=== PATIENT | male | born 1940 | race Caucasian/White ===

== ENCOUNTER 2018-12-26 09:56 | Inpatient (IN) ==
[2018-12-26] MEDS ORDERED: ZOFRAN IV PRN (11:06)
[2018-12-26] MEDS ORDERED: DUONEB (A & A) INH PRN (11:06)
--- NOTE | 2018-12-26 11:27 | EKG Report ---
Test Performed on : 12/26/2018 11:19:46 AM Test Reason : rythm evaluation Blood Pressure : / mmHG Vent. Rate : 094 BPM Atrial Rate : 094 BPM P-R Int : 166 ms QRS Dur : 080 ms QT Int : 352 ms P-R-T Axes : 041 001 031 degrees QTc Int : 440 ms Normal sinus rhythm. Low voltage QRS Borderline ECG When compared with ECG of 12-JUN-2018 08:10, Questionable change in QRS axis T wave inversion no longer evident in Inferior leads Confirmed by Mervin SIEGEL, Afshin Ashraf ([id number]) on 12/27/2018 12:00:06 PM
--- NOTE | 2018-12-26 12:34 | Diag Imaging Result Doc PS360 ---
CT THORAX W/O CONTRAST - 12/26/2018 INDICATION: R pl effussion COMPARISON: 11/19/2014, 12/13/2018 FINDINGS: There has been recurrence of the right pleural effusion which is moderately large. There is at least one pleural-based mass at the anterior-lateral right middle lobe. This measures 2.3 x 1.3 cm. No abnormality visible in the upper abdomen. There are numerous tiny pulmonary nodules diffusely throughout the lungs bilaterally. There are probably 100s. These measure less than 5 mm. IMPRESSION: 1. Recurrent rather large right pleural effusion. 2. Pleural-based masses on the right. Numerous tiny pulmonary nodules. Highly concerning for metastatic cancer. This exam was performed using automated exposure control, adjustment of mA or kV according to patient size, and/or use of iterative reconstruction technique Electronically signed by Sumit Gerber 12/26/2018 12:32 PM
[2018-12-26 13:02] LABS: BASO# 0.06 X1000 (0.0-0.2); BASO% 0.6 % (0.0-0.8); EOS% 1.1 % (0.0-10.0); HEMATOCRIT 40.6 % (42.0-52.0); IMM GRAN# 0.03 X1000 (0.0-0.04); IMM GRAN% 0.3 % (0.0-0.5); LYMPH# 1.17 X1000 (1.2-3.4); LYMPH% 12.3 % (20.5-51.1); MCH 30.4 PG (27-31); MCHC 34.5 g/dL (33-37); MCV 88.1 FL (81-99); MONO# 0.45 X1000 (0.11-0.59); MONO% 4.7 % (1.7-9.3); MPV 9.9 FL (7.4-10.4); NEUT# 7.68 X1000 (1.4-6.5); PLT 334 X1000 (130-400); RBC 4.61 XMIL (4.7-6.1); RDW 12.8 % (11.5-14.5); WBC 9.49 X1000 (4.8-10.8)
--- NOTE | 2018-12-26 13:03 | HISTORY AND PHYSICAL ---
PRIMARY CARE PROVIDER: Siddhartha Godinez MD. ONCOLOGIST: Bryan Rose MD. GENERAL SURGEON: Aishwarya Godinez MD. CHIEF COMPLAINT: Shortness of breath. HISTORY OF PRESENT ILLNESS: Mr. Yao Esteban is a 78-year-old male with a medical history of thyroid cancer diagnosed back in 2010 or 2011. At that time, he had thyroidectomy and it sounds like it was a radical left neck where they removed several lymph nodes and apparently it was all clear. He has been followed by Dr. Rose since then and has not had any issues up until around when he started having shortness of breath. He went in for a routine every [address] Rose, who ordered a chest x-ray and a CT and apparently it showed the right pleural effusions and some mediastinal lymph nodes, and then went for a thoracentesis. The right thoracentesis performed by [facility] where they pulled off 1325 mL. He states that while this was done on 12/13/2018, he said within a few days he was having shortness of breath once again. So, he went back to Dr. Rose, who then ordered a PET scan, which apparently showed several lesions in the lungs and again the right pleural effusion that is large and lower lumbar lesions as well. So, he was scheduled for a right pleural chest tube placement for tomorrow with Dr. Hemant Godinez but due to the inability to even lay flat or he is just having significant shortness of breath, he went ahead and notified Dr. Rose's office, went in and has now been directly admitted, will have a chest CT performed and pleural chest tube placement by Dr. Godinez. He was suppose to have a MRI today. He said he was unable to lay flat so it was not performed. Other medical history includes melanoma on his buttocks. He had to have that removed, it has not spread apparently. He has diabetes mellitus type 2, some iron-deficiency anemia, and high blood pressure. PAST MEDICAL HISTORY: 1. Iron-deficiency anemia. 2. Thyroid cancer in 2010 or 2011, apparently it was in remission but is back since around September. 3. Hypertension. 4. Diabetes mellitus type 2. 5. History of melanoma on the buttock with excision. 6. Hypothyroidism. PAST SURGICAL HISTORY: 1. Appendectomy. 2. Four back surgeries. 3. Right thoracentesis on 12/13/[address] Gerber. 4. Right shoulder arthroscopy. 5. Hydrocele x3 repaired. 6. Left knee replacement. 7. Thyroidectomy, this is back in 2010 or 2011, it almost sounds like a radical neck on the left but had several lymph nodes removed and some mediastinal lymph nodes removed at that time as well. Never had chemotherapy or radiation. SOCIAL HISTORY: Denies tobacco. States he is a pretty heavy drinker up until about 15 or more years ago when he quit and denies illicit drug use. Lives at home with his . FAMILY HISTORY: Mother at age 49 from stomach cancer. Father at age 51 from bone cancer. ALLERGIES: No known drug allergies. HOME MEDICATIONS: Not yet verified. REVIEW OF SYSTEMS: A 14-point review of systems are complete and all were negative except for those mentioned above in HPI. He denies fever, chills, nausea, vomiting, or diarrhea. He just has shortness of breath and that is all and some left hip and lower back discomfort. PHYSICAL EXAMINATION: VITAL SIGNS: Temperature 97.5, heart rate 91, respiratory rate 18, blood pressure 118/56, O2 saturation 93% on room air. GENERAL: Mr. Yao Gonzales is a 78-year-old male. He is in no acute distress. He is mildly dyspneic with exertion, now with speaking but it is not severe. He is able to answer questions appropriately. HEENT: Atraumatic, normocephalic. Pupils equal, round, and reactive to light. Extraocular movements intact. Mucous membranes are moist. NECK: Trachea midline. CARDIOVASCULAR: S1, S2, regular rate and rhythm. No rubs, gallops, or murmurs. No lower extremity edema, +2 dorsalis and radial pulses. Negative JVD or carotid bruits. PULMONARY: Clear to auscultate, very decreased in the right middle to lower base anterior and posteriorly. No work of breathing but mild dyspnea. Tolerating room air. GASTROINTESTINAL: Soft, nontender, nondistended, positive bowel sounds x4. EXTREMITIES: Moves all extremities equally with full range of motion. NEUROLOGIC: A and O x3, follows commands. Sensory is intact. SKIN: Warm, dry, intact. LABORATORY DATA: There is none at this time. There have been labs ordered. IMAGING: There has been a CT of the chest without contrast ordered per Dr. Hemant Godinez's recommendations. EKG shows normal sinus rhythm, rate is 94, QTc is 440. ASSESSMENT AND PLAN: 1. Reoccurrence of thyroid cancer now with reoccurring right large pleural effusion. He had a thoracentesis 12/13 where they pulled off a little over 1300 mL, now he has started having symptoms within a few days after that procedure. He was scheduled for chest tube placement tomorrow but was unable to sleep last night due to his shortness of breath, so he will have a CT scan today of the chest and plans for chest tube placement on the right with Dr. Hemant Godinez. He will be n.p.o. and then we will give him a diet post chest tube placement. 2. Hypothyroidism with thyroid cancer history and reoccurring thyroid cancer cells to the lymph nodes. Dr. Rose follows and we will make sure he is consulted as he is the one that directly admitted the patient. Also will check a TSH, T4. He is suppose to be on Synthroid so we will see what the dosing is once his home medications are verified and resume it. 3. Diabetes mellitus type 2. Will do pattern blood glucoses and sliding scale insulin. 4. Iron-deficiency anemia. Awaiting for hemoglobin and hematocrit results. 5. Deep venous thrombosis prophylaxis, sequential compression devices for now. Dictated by HARLEY Conn for David Cruz MD cc: HARLEY Conn MD Sammy Becdach, MD R. Tyler Harney, MD Rodney W. Harney, MD Patient seen and examined by me. I agree with the assessment and plan of the HARLEY. Dr. Nancy BURNETT
[2018-12-26 13:09] LABS: INR 0.94; PROTIME 13.3 Seconds (11.0-16.0)
[2018-12-26 13:10] LABS: PTT 28.6 Seconds (22.3-41.8)
[2018-12-26 13:19] LABS: ALLEN TEST YES; BE 1.3 mmoll (-3.0-3.0); BLOOD TYPE ARTERIAL; HCO3-(ACT) 25.9 mmoll (20.0-26.0); METHB 1.2 % (0.0-1.5); O2(CT) 16.7 mL/dL (15.0-23.0); O2HB 94.8 % (95.0-99.0); PCO2(98.6) 44 mmHg (35-45); PO2(98.6) 79 mmHg (60-100); SAMPLE BLOOD; THB 12.5 g/dL (11.5-17.4); pH(98.6) 7.39 (7.35-7.45)
[2018-12-26 13:20] LABS: MODALITY CANNULA
[2018-12-26 13:25] LABS: AGAP 15; ALB/GLOB RATIO 1.4; ALBUMIN 4.7 g/dL (3.5-5.0); ALKALINE PHOSPHATASE 67 U/L (32-122); BUN 16 mg/dL (8-22); CALCIUM 9.4 mg/dL (8.8-10.2); CHLORIDE 94 mmol/L (98-107); COSMO 278; ESTIMATED GFR > 60; GLUCOSE 225 mg/dL (70-104); GOT 14 U/L (10-34); GPT 13 U/L (10-44); MAGNESIUM 1.6 mg/dL (1.5-2.7); SODIUM 135 mmol/L (136-145); TCO2 26 mmol/L (25-35); TOTAL BILIRUBIN 0.78 mg/dL (0.20-1.00); TOTAL PROTEIN 8.1 g/dL (6.3-8.3)
[2018-12-26 13:38] LABS: FREE T4 1.29 ng/dL (0.93-1.70); TSH 9.23 uIUmL (0.27-4.20)
[2018-12-26] MEDS: HUMULIN R SUBQ SCH ×2 (18:02→22:35)
[2018-12-26 18:30] LABS: URINE SOURCE CLEAN CATCH
[2018-12-26 18:35] LABS: BILIRUBIN URINE NEGATIVE (NEGATIVE); BLOOD URINE MODERATE (NEGATIVE); COLOR YELLOW; GLUCOSE URINE NEGATIVE (NEGATIVE); KETONE URINE TRACE mg/dL (NEGATIVE); LEUKOCYTES URINE SMALL (NEGATIVE); NITRITE URINE NEGATIVE (NEGATIVE); PROTEIN URINE TRACE mg/dL (NEGATIVE); SP GRAVITY URINE 1.014; TURBIDITY URINE HAZY (CLEAR); UROBILINOGEN URINE NORMAL (NORMAL)
[2018-12-26 18:37] LABS: UR EPITHELIAL CELLS <10 /HPF (<10); URINE BACTERIA 4+ /HPF; URINE RBC 20-40 /HPF (<10); URINE WBC 20-40 /HPF (<10)
--- NOTE | 2018-12-26 20:46 | GENERAL SURGERY CONSULTATION ---
DATE: 12/26/2018 HISTORY OF PRESENT ILLNESS: This is a 78-year-old gentleman who had a radical thyroidectomy back [place] [address] Monaco for metastatic papillary thyroid carcinoma. He underwent radioactive iodine at that time. He has also had a perianal melanoma that was excised by Dr. Garcia around the same time period. He has also had some lower lumbar/hip discomfort. He had a scan that showed a pleural effusion that was tapped and showed cytologies consistent with metastatic papillary carcinoma. He had a large volume paracentesis, but developed recurrent respiratory symptoms in a short interval, and is admitted for management of right effusion. MEDICAL HISTORY: 1. Thyroid carcinoma, treated in 2010 with a modified radical right neck dissection, total thyroidectomy, as well as adjuvant radioactive iodine. 2. Hypertension. 3. Diabetes. 4. History of cutaneous melanoma. 5. Hypothyroidism, secondary to above. SURGICAL HISTORY: 1. Appendectomy. 2. Back operations. 3. Recent thoracentesis on 12/13/2018. 4. Shoulder. 5. Hydrocele. 6. Knee replacement. 7. Radical neck with thyroidectomy. SOCIAL HISTORY: No current tobacco. History of alcohol, but none currently. . His is here with him. FAMILY HISTORY: Significant for gastric cancer and bone cancer. MEDICATIONS: Negative for anticoagulants. REVIEW OF SYSTEMS: 10 point negative. PHYSICAL EXAMINATION: General: He is afebrile. Pulse is in the 90s. Blood pressure 147/64. Oxygen saturation is 93%. He is on 2 L. General: He is alert. He has no scleral icterus. He has postsurgical changes, right neck, but no palpable masses. Cardiovascular: Normal rate. Pulmonary: He does have some orthopnea when he lies flat, but otherwise no respiratory distress. Abdomen: Soft. Integument: Warm and dry. Psychiatric: Appropriate affect. Neurologic: No gross deficits. Lymphatic: No cervical, axillary, or inguinal adenopathy. I reviewed his labs. White count is 9, hematocrit is 40. INR is 0.94. Creatinine is 1.0. Glucose 120s to 225. LFTs and troponins are normal. I reviewed a CT scan of the chest that shows a large right effusion with pleural-based nodules. ASSESSMENT AND PLAN: A 78-year-old gentleman with metastatic papillary thyroid carcinoma. He needs palliative drainage of the fluid to facilitate his ongoing therapy. I have discussed risks, benefits, pros and cons. I have recommended PleurX catheter placement. We will go to the operating room for this tomorrow. I have also talked to Dr. Rose. He does not require any further tissue diagnosis. As such, we will not perform this. We will plan on bronchoscopy concurrently with this to rule out any mucus plugging of lower lobes of the lung. I discussed risks of bleeding, the anticipated recovery, possibility of malfunction of the catheter, need for subsequent procedures, damage to lung, incomplete expansion of the lung, and the care of the tube at home. They understand and consent. We will go to the operating room tomorrow for this. cc: Aishwarya Godinez MD
--- NOTE | 2018-12-26 22:51 | ECHO REPORT ---
ORDER DATE: 12/26/2018 MEASUREMENTS: 1. Septal thickness 1.2, left ventricular internal mammary diastole 3.5, posterior wall thickness 1.0, left ventricular internal diameter in systole 2.1, left atrium 3.3, aortic root 3.6. SUMMARY: 1. Adequate quality study. 2. Aortic valve is trileaflet and opens normally on 2-dimensional images. Peak gradient across aortic valve was less than 10 mmHg. Mitral, tricuspid, and pulmonic valves are without evidence of structural abnormality with trace mitral regurgitation, very mild tricuspid regurgitation, and mild pulmonic insufficiency. Estimated systolic PA pressure by Doppler is 40 mmHg suggesting mild pulmonary hypertension. Aortic root is normal in size. The proximal ascending aorta appears mildly dilated. 3. Normal left ventricular dimensions suggested. Estimated left ejection fraction appears to be at least 65%. No regional wall motion abnormality is evident. Left atrium, right atrium, right ventricle are normal size with normal right ventricular systolic function. 4. No pericardial effusion. 5. Inferior vena cava is mildly dilated suggesting mild elevation in central venous pressure. CONCLUSIONS: 1. Very mild tricuspid regurgitation and mild pulmonic insufficiency with mild pulmonary hypertension by Doppler. 2. Normal left ventricular systolic function without wall motion abnormality evident. 3. Mild dilatation of proximal ascending aorta. cc: MD Malou Miranda CRNP
[2018-12-27] MEDS: HUMULIN R SUBQ SCH ×4 (06:48→21:23)
[2018-12-27 06:49] LABS: BASO# 0.04 X1000 (0.0-0.2); BASO% 0.5 % (0.0-0.8); EOS% 2.6 % (0.0-10.0); HEMATOCRIT 38.1 % (42.0-52.0); HEMOGLOBIN 13.3 g/dL (14.0-18.0); IMM GRAN# 0.02 X1000 (0.0-0.04); IMM GRAN% 0.3 % (0.0-0.5); LYMPH# 1.03 X1000 (1.2-3.4); LYMPH% 13.5 % (20.5-51.1); MCH 30.7 PG (27-31); MCHC 34.9 g/dL (33-37); MONO# 0.48 X1000 (0.11-0.59); MONO% 6.3 % (1.7-9.3); MPV 9.9 FL (7.4-10.4); NEUT# 5.85 X1000 (1.4-6.5); NEUT% 76.8 % (42.2-75.2); PLT 283 X1000 (130-400); RBC 4.33 XMIL (4.7-6.1); RDW 12.7 % (11.5-14.5); WBC 7.62 X1000 (4.8-10.8)
[2018-12-27 06:55] LABS: PTT 29.8 Seconds (22.3-41.8)
[2018-12-27] MEDS ORDERED: KEFZOL 1 GM/D5W 1 GM/50 ML IVPB IV ONE (07:10)
[2018-12-27 07:23] LABS: AGAP 12; ALB/GLOB RATIO 1.3; ALBUMIN 4.1 g/dL (3.5-5.0); ALKALINE PHOSPHATASE 61 U/L (32-122); BUN 15 mg/dL (8-22); CALCIUM 9.1 mg/dL (8.8-10.2); CHLORIDE 98 mmol/L (98-107); COSMO 283; CREATININE 0.8 mg/dL (0.7-1.2); ESTIMATED GFR > 60; GLUCOSE 175 mg/dL (70-104); GOT 13 U/L (10-34); GPT 13 U/L (10-44); MAGNESIUM 1.6 mg/dL (1.5-2.7); POTASSIUM 4.1 mmol/L (3.5-5.1); SODIUM 139 mmol/L (136-145); TCO2 29 mmol/L (25-35); TOTAL BILIRUBIN 0.99 mg/dL (0.20-1.00); TOTAL PROTEIN 7.2 g/dL (6.3-8.3)
[2018-12-27] MEDS ORDERED: DIPRIVAN 1% ONE (07:33)
[2018-12-27] MEDS ORDERED: FENTANYL ONE (07:35)
[2018-12-27] MEDS ORDERED: QUELICIN (DOSE) ONE (07:39)
[2018-12-27] MEDS ORDERED: MARCAINE 0.25% PF/EPI 1:200,000 ONE (07:40)
--- NOTE | 2018-12-27 09:25 | Diag Imaging Result Doc PS360 ---
EXAM: CHEST-PORTABLE 12/27/2018 HISTORY: post chest tube insertion TECHNIQUE: AP portable at 0913 COMMENT: There is a chest tube over the left posterior costophrenic sulcus. There is a pleural mass present on the right just above the costophrenic sulcus which was also present on 12/13/2018. The appearance the chest has not changed significantly. IMPRESSION: Stable chest. Electronically signed by Sd Holland 12/27/2018 9:23 AM
[2018-12-27] MEDS: DILAUDID ONE ×2 (09:44→09:48)
--- NOTE | 2018-12-27 13:32 | PROGRESS NOTE ---
DATE: 12/27/2018 SUBJECTIVE: The patient resting comfortable in bed. OBJECTIVE: Vital Signs: Temperature 97.5 degrees, pulse 91, respiratory rate 18, blood pressure 136/61, oxygen saturation 98%. HEENT: Atraumatic, normocephalic. Cardiovascular: S1, S2. Respiratory: Has evidence of good entry bilaterally. Abdomen: Soft, nontender. No masses felt. Extremities: No evidence of edema. Central nervous system: No obvious focal deficit noted. LABORATORY DATA: WBC 7.63, hematocrit is 38.1 with a platelet count of 283,000. Sodium 139, potassium 4.1, chloride 98, bicarb is 29, BUN is 15, creatinine 0.8. ASSESSMENT AND PLAN: 1. Recurrent right pleural effusion. Status post PleurX catheter placement. Surgery following. 2. History of thyroid cancer. Oncology following. 3. Diabetes mellitus. Blood sugar monitor as well as sliding scale insulin. 4. Iron deficiency anemia. Monitor hemoglobin and hematocrit. Transfuse PRBCs as needed. 5. Deep vein thrombosis prophylaxis. Sequential compression devices. 6 Disposition: dc home once cleared by Surgical team. cc: David Cruz MD [facility]
--- NOTE | 2018-12-27 15:21 | OPERATIVE NOTE ---
PROCEDURE DATE: 12/27/2018 PREOP DIAGNOSIS: Malignant right effusion. POSTOP: Malignant right effusion.. PROCEDURE PERFORMED: 1. Ultrasound-guided placement of right PleurX catheter. 2. Bronchoscopy. ESTIMATED BLOOD LOSS: Less than 5 mL. SPECIMEN: None. ANESTHESIA: General. INDICATIONS: A 78-year-old gentleman who has a history of regionally advanced papillary thyroid carcinoma who presents with right-sided effusion and cytology consistent with papillary thyroid carcinoma, plans to undergo palliative chemotherapy. OPERATIVE FINDINGS: 1. There was a large right-sided effusion visualized with ultrasound above the level of the diaphragm. 2. Findings on bronchoscopy showed some extrinsic compression of lower airways in the lower lobe and middle lobe on the right but no endobronchial lesion or mucous plugging. OPERATIVE NOTE: Risks, benefits, alternatives discussed patient, seen preoperatively and surgical site was confirmed, marked, he did consent, he was taken operating room placed supine position. General anesthesia induced without complication. All bony prominences were padded. A single-lumen endotracheal tube was placed by Anesthesia and after a time-out we performed a flexible tip bronchoscopy with above findings. No specimens were collected. Withdrew the scope and at this point prepped his right chest widely, placing him slight bump position [*] above his head. A focused ultrasound approximately 2 rib spaces below the level of the inframammary fold was identified. There was a large cushion of fluid here and we aspirated this with our local needle and confirmed that we were in good location. We then made a skin rudy, advanced our introducer needle with a sheath here and threaded our wire into the right hemothorax. We then measured anteriorly to provide an adequate length between the last hole of the last fenestration in the cuff and we made a counter incision, tunneled the catheter between the 2. We then serially dilated tract, advanced the catheter into the right chest and peeled away the sheath. This was then placed to suction via Pleur-evac and we noted good return of brisk serosanguineous mostly serous fluid. We placed a pursestring around the exit site of catheter, closed the incision with Monocryl and secured it with a nylon suture. Dressing was applied. He continued to drain at the conclusion of the case. It was approximately 1300 mL in our Pleur-evac with some loss on the drapes. Tolerated it well, is woken transferred recovery. Will obtain an x-ray. cc: Aishwarya Godinez MD
[2018-12-27] MEDS: TYLENOL PO PRN (16:14)
--- NOTE | 2018-12-27 18:48 | HEMO/ONC CONSULTATION ---
DATE: 12/27/2018 ADMITTING PHYSICIAN: Dr. Jeffries. REQUESTING PHYSICIAN: Dr. Jeffries. We appreciate this consult. CHIEF COMPLAINT: Thyroid cancer. HISTORY OF PRESENT ILLNESS: Mr. Yao Gonzales is a very pleasant 78-year-old male well known to Dr. Rose with a history of T3N1M0 papillary thyroid carcinoma. Recent cytology has shown recurrent disease most likely to the lung, pleura and bone. The patient was referred to Dr. Saleh in [place] for chest tube placement with pleurodesis and radioactive iodine therapy in [place]. The patient reports after this procedure was performed he began having shortness of breath a few days later, therefore he presented Dr. Rose in clinic and PET scan was ordered which showed several lesions in the lung as well as recurrent right pleural effusion that was large, additionally lower lumbar lesions were observed. The patient was therefore scheduled for a right pleural chest tube placement with Dr. Hemant Godinez. The patient is awaiting MRI which is unable to be performed at this time as he is unable to lay flat. We are consulted as the patient is well known to us. PAST MEDICAL HISTORY: 1. T3N1M0 papillary thyroid carcinoma. 2. Iron-deficiency anemia. 3. Hypertension. 4. Diabetes mellitus type 2. 5. Melanoma. 6. Hypothyroidism. PAST SURGICAL HISTORY: 1. Appendectomy. 2. Four back surgeries. 3. Right thoracentesis 12/13/2018. 4. Right shoulder arthroscopy. 5. Hydrocele repair. 6. Left knee replacement. 7. Thyroidectomy. SOCIAL HISTORY: The patient has a remote history of drinking heavily approximately 15 years ago. He does not currently use tobacco, alcohol or illicit drugs. He has no history of smoking. FAMILY HISTORY: Significant for stomach cancer in the patient's mother who at age 49 and bone cancer in the patient's father who at age 51. MEDICATIONS ON ADMISSION: 1. Metformin. 2. Lortab. 3. Cyanocobalamin. 4. Meloxicam. 5. Synthroid. ALLERGIES: Patient has no known drug allergies. REVIEW OF SYSTEMS: A 14 point review of systems was obtained and is negative except for mentioned in HPI. PHYSICAL EXAM: Mr. Gonzales is a very pleasant 78-year-old male lying supine in bed in no immediate distress.Vital Signs: Temperature 97.9 degrees, blood pressure 147/64, heart rate 91, respirations 18, O2 saturation 98% on room air. HEENT: Normocephalic, atraumatic. Mucous membranes are pink and moist. Sclerae is anicteric. Extraocular movements intact. Neck: Supple. Lungs: Clear to auscultation bilaterally. Chest expansion equal bilaterally. CV: S1, S2 is heard. No murmurs, rubs or gallops. Abdomen: Nondistended. Extremities: No clubbing, cyanosis, or edema. Dermatologic: No rashes, bruises or lesions. Neuro: The patient is awake, alert, and oriented x3 and has no focal deficits. LABORATORY DATA: ANC 7.68, hemoglobin 14.0, hematocrit 40.6, white blood cell count 9.49, platelets 334,000. INR 0.94, sodium 135, potassium 4.0, chloride 94, CO2 is 26, BUN 16, creatinine 1.0 and glucose 225. IMAGING STUDIES: CT of the chest reveals large recurrent right pleural effusion with pleural based masses on the right and numerous tiny pulmonary nodules questionably related to metastasis. ASSESSMENT AND PLAN: 1. T3N1M0 papillary thyroid carcinoma now with malignant large right pleural effusion. We will make further recommendations pending outcomes regarding treatment. 2. Large recurrent right pleural effusion status post Pleurx catheter placement. The patient has tolerated well and is resting comfortably. 3. Diabetes mellitus type 2 on sliding scale insulin. Glucose is stable at 175. 4. Iron-deficiency anemia. Will continue to monitor. 5. We will follow along with you and make further recommendations pending outcomes. The above reflects the history exam assessment and plan of Dr. Rose. Dictated by HARLEY Milan for Bryan Rose MD cc: HARLEY Milan MD
[2018-12-28] MEDS: HUMULIN R SUBQ SCH ×2 (07:00→11:31)
[2018-12-28 08:17] VITALS: BP 137/62
--- NOTE | 2018-12-28 09:58 | PROGRESS NOTE ---
DATE: 12/28/2018 Mr. Yao Gonzales is a 78-year-old white male who has metastatic papillary thyroid cancer. He developed a symptomatic right pleural effusion and this has been treated by Dr. Godinez using a PleurX catheter. His PleurX catheter, overnight, was hooked to a Thora-Klex. Over the last 8 hours it has not drained much and clinically his breathing has improved. We will remove the PleurX catheter from the Thora-Klex and send him home with a PleurX catheter in place, with plans for Dr. Godinez to arrange home health care Sunday or Sunday to have the PleurX catheter re- evaluated and possibly fluid drained from the right chest. I discussed care of the catheter with him and he knows to return to the emergency room with any shortness of breath. At discharge, his heart rate is 76, blood pressure 137/62, O2 saturation 100%. He did have nasal cannula on. He was afebrile. He is to return to his home medications. cc: Donna Ross MD MTDD
[2018-12-28] MEDS: TYLENOL PO PRN (11:16)
--- NOTE | 2018-12-28 20:33 | DISCHARGE SUMMARY ---
ADMISSION DATE: 12/26/2018 DISCHARGE DATE: 12/28/2018 DISPOSITION: Home. FOLLOWUP: 1. Dr. Hemant Godinez. 2. Dr. Rose. 3. Dr. Siddhartha Godinez CONSULTATION DURING THIS ADMISSION: Surgery was consulted. Patient was seen by Dr. Hemant Godinez. INVASIVE PROCEDURES DONE DURING THIS ADMISSION: Ultrasound-guided placement of right PleurX catheter and bronchoscopy were done by Dr. Godinez on 12/27/2018. ADMISSION DIAGNOSES: 1. Recurrence of thyroid cancer. 2. Hypothyroidism. 3. Diabetes mellitus. 4. Iron deficiency. DIAGNOSES AT THE TIME OF DISCHARGE: 1. Symptomatic right malignant pleural effusion status post bronchoscopy and right PleurX catheter placement. 2. Metastatic papillary thyroid carcinoma. 3. History of hypothyroidism. 4. Hypertension. 5. Diabetes mellitus. DISCHARGE MEDICATIONS: 1. Levothyroxine 175 mcg p.o. daily. 2. Metformin 1 g b.i.d. 3. Glipizide 10 mg b.i.d. 4. Lisinopril hydrochlorothiazide. 5. Tamsulosin 0.4 b.i.d. PRESENTING COMPLAINT: Shortness of breath. HISTORY OF PRESENTING COMPLAINT: Mr. Gonzales is a 78-year-old male diagnosed with thyroid cancer in . Underwent a thyroidectomy. Follows up with Dr. Rose. The patient did a CT scan a couple of months ago with Dr. Rose and was found to have pleural effusion. A PET scan outpatient workup was done. However, the patient became symptomatic with the pleural effusion, so was admitted for medical care. HOSPITAL COURSE: Mr. Gonzales was admitted to the medical floor. Surgery was consulted. Evaluation was done by Dr. Godinez. A decision for thoracenteses with PleurX catheter placement and bronchoscopy were done successfully. The patient tolerated the procedure without any complications. Postoperatively today he referred to be feeling okay. The patient seems to be doing okay. Surgery discharged the patient before I was able to see him today. The patient was advised to follow up with his primary care doctor, Dr. Siddhartha Godinez, and the surgeon, Dr. Hemant Godinez. TIME SPENT FOR DISCHARGE: 30 minutes. cc: Gregory Younger MD MTDD
== END 2018-12-28 11:26 | disposition home health service (06) | DRG 644 ==
LOC: SUATTDRO 09:56 → DIRADM 09:56 → 4N 10:40
PROVIDERS: ATTEND Internal Medicine
CPT/HCPCS: 71010; 71045; 71250; 80053; 81001; 82550; 82805; 82948; 83605; 83735; 83880; 84439; 84443; 84484; 85025; 85610; 85730; 87040; 87077; 87088; 87186; 93005; 93010; 93306; 94761; 94799; A9270; C1729; J0330; J0690; J1170; J3010; S0020; XXXXX